=== PATIENT | male | born 1960 | race African-American/Black ===

== ENCOUNTER 2022-10-24 11:56 | Emergency (ER) | payer MEDICAID ==
[~2022-10-24] VITALS: Ht 182.9 cm; Wt 75.0 kg
[2022-10-24 13:30] VITALS: BP 158/82
== END 2022-10-24 17:03 | disposition home or self-care (01) ==
LOC: ER 11:56
DX: M25.551 Pain in right hip (principal); M54.50 Low back pain, unspecified; E11.9 Type 2 diabetes mellitus without complications; I10 Essential (primary) hypertension
CPT/HCPCS: 73502; 99283

== ENCOUNTER 2025-05-06 17:18 | Emergency (ER) | payer MEDICAID ==
[~2025-05-06] VITALS: Ht 195.6 cm; Wt 83.4 kg
[2025-05-06 17:24] VITALS: O2SAT 100
[2025-05-06] MEDS: HYDROCODONE/ACETAMINOPHEN 10/325MG TABLET PO ONE (18:26)
[2025-05-06] MEDS ORDERED: TRAM50TA3 MT (21:29)
[2025-05-06 21:33] VITALS: BP 144/77; PULSE 80; RESP 18; TEMP 36.8; O2SAT 100
== END 2025-05-06 21:34 | disposition home or self-care (01) ==
LOC: ER 17:18
DX: R51.9 Headache, unspecified (principal); R22.0 Localized swelling, mass and lump, head; E11.9 Type 2 diabetes mellitus without complications; I10 Essential (primary) hypertension; Y04.0XXA Assault by unarmed brawl or fight, initial encounter; Y93.89 Activity, other specified; Y92.89 Other specified places as the place of occurrence of the external cause; Y99.8 Other external cause status
CPT/HCPCS: 70486; 99284